=== PATIENT | male | born 1955 | race Caucasian/White ===

== ENCOUNTER 2019-07-24 02:50 | Emergency (ER) | payer OTHER ==
[~2019-07-24] VITALS: Ht 175.3 cm; Wt 79.5 kg
[2019-07-24 02:54] VITALS: BP 184/91
[2019-07-24] MEDS ORDERED: benzonatate 100mg capsule PO ONE (03:25)
[2019-07-24] MEDS ORDERED: GUAI120L55 PO (03:31)
[2019-07-24] MEDS ORDERED: BENZ-16 PO (03:31)
== END 2019-07-24 03:44 | disposition home or self-care (01) ==
LOC: ER 02:52
DX: J20.9 Acute bronchitis, unspecified (principal); J45.909 Unspecified asthma, uncomplicated; Z79.899 Other long term (current) drug therapy
CPT/HCPCS: 71045; 99283